=== PATIENT | male | born 2000 | race Caucasian/White ===

== ENCOUNTER 2019-03-02 21:15 | Emergency (ER) | payer SELFPAY ==
[~2019-03-02] VITALS: Ht 182.8 cm; Wt 167.8 kg
[~2019-03-02 21:15] MED LIST: AUGMENTIN 400 M1 CTB PO; CLARITIN10 MG PO; DOC-Q-LACE100 MG PO; GOOD NEIGHBOR L10 MG PO; IBUPROFEN200 MG PO; INTUNIV2 MG PO; INVEGA1.5 MG PO; INVEGA6 MG PO; INVEGA9 MG PO; MELATONIN10 M3 PO; MOTRIN800 MG PO; Motrin,Rufen800 MG PO; PHENERGAN12.5 MG RC; RISPERDAL0.5 MG PO; RISPERDAL1 MG PO; STRATTERA60 MG PO; STRATTERA80 MG PO; ZOFRAN ODT4 MG SL
[2019-03-02 23:06] LABS: BASO # 0.1 10*3/uL (0.0-0.1); BASO % 0.3 % (0.0-1.0); EOS # 0.2 10*3/uL (0.0-0.4); EOS % 1.1 % (1.0-4.0); HEMATOCRIT 46.6 % (42.0-52.0); HEMOGLOBIN 15.3 g/dl (14.0-18.0); LYMPH # 0.9 10*3/uL (1.3-4.4); LYMPH % 6.1 % (27.0-41.0); MEAN CELL VOLUME 86.9 fl (80.0-94.0); MEAN CORPUSCULAR HGB 28.5 pg (27.0-31.0); MEAN CORPUSCULAR HGB CONC 32.8 g/dl (33.0-37.0); MEAN PLATELET VOLUME 9.3 fl (9.6-12.3); MONO # 0.8 10*3/uL (0.1-1.0); MONO % 5.2 % (3.0-9.0); NEUT # 13.3 10*3/uL (2.3-7.9); NEUT % 86.9 % (47.0-73.0); PLATELET COUNT AUTOMATED 278 10*3/uL (130-400); RED BLOOD COUNT 5.36 10*6/uL (4.50-5.90); RED CELL DISTRI WIDTH 12.5 % (0-14.5); WHITE BLOOD COUNT 15.3 10*3/uL (4.8-10.8)
[2019-03-02 23:14] LABS: ALBUMIN 3.8 gm/dl (3.1-4.5); ALKALINE PHOSPHATASE 86 U/L (45-117); BUN 15 mg/dl (7-24); CHLORIDE 107 mmol/L (98-107); CREATININE 1.05 mg/dL (0.70-1.30); LIPASE 85 U/L (73-393); POTASSIUM 3.9 mmol/L (3.5-5.1); SGOT/AST 22 IU/L (3-35); SGPT/ALT 42 U/L (12-78); SODIUM 140 mmol/L (136-145); TOTAL PROTEIN 7.8 gm/dL (6.4-8.2)
[2019-03-03] MEDS ORDERED: ZOFRAN4 MG PO (00:12)
[2019-03-03] MEDS ORDERED: DICYCLOMINE HYD20 MG PO (00:12)
== END 2019-03-03 00:32 | disposition home or self-care (01) ==
LOC: ED 21:15
PROVIDERS: Physician Assistant
DX: K76.0 Fatty (change of) liver, not elsewhere classified (principal); R11.2 Nausea with vomiting, unspecified; R19.7 Diarrhea, unspecified; F17.200 Nicotine dependence, unspecified, uncomplicated; Z79.899 Other long term (current) drug therapy

== ENCOUNTER 2021-06-14 21:43 | Emergency (ER) | payer SELFPAY ==
[~2021-06-14] VITALS: Ht 182.8 cm; Wt 108.9 kg
[~2021-06-14 21:43] MED LIST changes: +DICYCLOMINE HYD20 MG PO; +ZOFRAN4 MG PO
[2021-06-14] MEDS ORDERED: CEPHALEXIN500 M1 PO (22:10)
[2021-06-14] MEDS ORDERED: VIBRA-TAB100 MG PO (22:10)
== END 2021-06-14 22:20 | disposition home or self-care (01) ==
LOC: ED 21:43
DX: L73.9 Follicular disorder, unspecified (principal); Z79.899 Other long term (current) drug therapy